=== PATIENT | female | born 1955 | race African-American/Black ===

== ENCOUNTER 2017-08-13 11:05 | Emergency (ER) | payer SELFPAY ==
[~2017-08-13] VITALS: Ht 172.7 cm; Wt 64.0 kg
[2017-08-13] MEDS ORDERED: ASPI-1159 PO (11:21)
[2017-08-13] MEDS ORDERED: IBUPROFEN 400MG TABLET PO ONE (16:00)
[2017-08-13 16:05] VITALS: BP 131/68
[2017-08-13 16:27] LABS: CHLORIDE 103 mEq/L (98-107)
[2017-08-13 16:30] LABS: INR 1.2; PROTHROMBIN TIME 12.2 sec (9.4-11.6)
[2017-08-13 16:32] LABS: CARBON DIOXIDE 32 mEq/L (21-32)
[2017-08-13 16:41] LABS: BASOPHILS % 0.4 % (0.0-2.0); EOSINOPHILS % 0.7 % (0.0-5.0); HEMATOCRIT. 34.7 % (36.0-48.0); HEMOGLOBIN. 11.6 g/dL (12.0-16.0); LYMPHOCYTES % 19.4 % (20.0-50.0); MEAN CORPUSCULAR HEMOGLOBIN 30.3 pg (28.0-32.0); MEAN CORPUSCULAR VOLUME 90.3 fL (81.0-99.0); MEAN PLATELET VOLUME 9.3 fl (7.4-10.4); NEUTROPHILS % 72.5 % (40.0-76.0); PLATELET 217 x1000/uL (130-400); RED BLOOD CELL COUNT 3.84 mill/uL (4.2-5.4); RED CELL DISTRIBUTION WIDTH 14.3 % (11.6-14.6)
== END 2017-08-13 17:43 | disposition home or self-care (01) ==
LOC: ER 12:50
DX: S82.402A Unspecified fracture of shaft of left fibula, initial encounter for closed fracture (principal); Z79.82 Long term (current) use of aspirin; X58.XXXA Exposure to other specified factors, initial encounter; Y93.89 Activity, other specified; Y92.89 Other specified places as the place of occurrence of the external cause; Y99.8 Other external cause status
CPT/HCPCS: 29515; 36415; 73610; 80053; 85025; 85610; 93971; 99285

== ENCOUNTER 2018-03-09 14:11 | Emergency (ER) | payer SELFPAY ==
[~2018-03-09] VITALS: Ht 170.2 cm; Wt 91.0 kg
[~2018-03-09 14:11] MED LIST: ASPI-1159 PO
[2018-03-09 14:24] VITALS: BP 126/58
[2018-03-09] MEDS ORDERED: BACITRACIN ZINC OINT UDPKT TOP ONE (17:15)
== END 2018-03-09 18:30 | disposition home or self-care (01) ==
LOC: ER 14:11
DX: S81.012A Laceration without foreign body, left knee, initial encounter (principal); Z91.81 History of falling; W01.0XXA Fall on same level from slipping, tripping and stumbling without subsequent striking against object, initial encounter; Y93.89 Activity, other specified; Y92.018 Other place in single-family (private) house as the place of occurrence of the external cause
CPT/HCPCS: 99283